=== PATIENT | female | born 1955 | race Caucasian/White ===

== ENCOUNTER 2018-12-19 18:23 | Emergency (ER) | payer OTHER ==
[~2018-12-19] VITALS: Ht 160 cm; Wt 81.7 kg
[2018-12-19 21:08] VITALS: BP 146/88
== END 2018-12-19 21:27 | disposition home or self-care (01) ==
LOC: ER 18:23
DX: T18.5XXA Foreign body in anus and rectum, initial encounter (principal); X58.XXXA Exposure to other specified factors, initial encounter; Y93.89 Activity, other specified; Y92.89 Other specified places as the place of occurrence of the external cause; Y99.8 Other external cause status